=== PATIENT | female | born 1990 | race Caucasian/White ===

== ENCOUNTER 2019-05-17 01:04 | Emergency (ER) | payer MEDICAID, SELFPAY ==
[2019-05-17 01:06] VITALS: BP 114/73; PULSE 124; RESP 17; TEMP 37.3; O2SAT 97; BMI 29.7
--- NOTE | 2019-05-17 01:20 | ED.VIS.GEN ---
History of Present Illness Chief Complaint: Cold Sx Narrative: Patient is a 28-year-old female who presents with an influenza-like illness. Her symptoms began yesterday afternoon. She complains of severe myalgias as well as sore throat headache nausea and vomiting. No cough. She is not short of breath. No diarrhea. She does have sick contacts although they have less symptoms than her. Patient denies any other medical history or daily medications. Past Medical History - Allergies and Home Meds Allergies/Adverse Reactions: Allergies Penicillins Allergy (Verified 05/17/19 01:05) Anaphylaxis Primary Care Physician: NOT,DEFINED [NON-STAFF] - Past Medical History: None Smoking Status: Current some day smoker Review of Systems All systems negative except as indicated General: Reports: Fever ENT: Reports: Sore throat Cardiovascular: Denies: Chest pain Respiratory: Denies: Dyspnea, Cough Gastrointestinal: Reports: Nausea, Vomiting. Denies: Abdominal pain Musculoskeletal: Reports: Myalgias, Arthralgias Skin: Denies: Rash Neurological: Reports: Headache Physical Exam Vital Signs/Narrative: Vital Signs Temp Pulse Resp BP Pulse Ox 05/17/19 01:06 99.1 F 124 H 17 114/73 97 Inital Vital Signs reviewed: Yes General: Well nourished, Well developed Head: Normocephalic Eyes: EOMI ENT: Moist mucous membranes Neck: Supple Cardiovascular: Regular rhythm, Tachycardia Respiratory: No distress, CTA bilaterally Abdomen: Soft, Nontender Extremities: Nontender Skin: Normal color Neurological: Alert Psychological: Tearful Diagnostic/Tx/Re-eval 05/17/19 01:30 Mucosa - Nasopharyngeal Influenza Types A,B Direct FA ([facility]) - Final - Medical Decision Making Rapid influenza is negative. Patient was treated with IV fluids and Toradol. She does feel much better on reevaluation. After 1 L repeat heart rate is 104. We discussed risks and benefits of Tamiflu and she would prefer to take it. She was given a prescription for 5 days of Tamiflu. She will be discharged when she completes IV fluids. ED Disposition - Plan for ED Patient: Disposition: Home or Assisted Living Diagnosis: Influenza-like illness Instructions: INFLUENZA (Adult) Prescriptions: Oseltamivir Phosphate [Tamiflu] 75 mg PO BID #10 cap Prescription Printed Referrals: NOT,DEFINED [NON-STAFF] -
[2019-05-17 01:30] VITALS: BP 114/78; PULSE 127; RESP 17; TEMP 37.3; O2SAT 99
[2019-05-17] MEDS: Ketorolac 30 MG/ML Syringe IV (01:33)
[2019-05-17] MEDS: 0.9% Normal Saline 1,000 ML 1000 ML IV ×2 (01:34→02:30)
[2019-05-17 03:50] VITALS: BP 94/67; PULSE 105; RESP 20
== END 2019-05-17 03:51 | disposition home or self-care (01) ==
PROVIDERS: Emergency Provider Emergency Medicine
DX: J11.1 Influenza due to unidentified influenza virus with other respiratory manifestations (principal); F17.200 Nicotine dependence, unspecified, uncomplicated
CPT/HCPCS: 87804; 96361; 96374; 99283; J7030; A4216